=== PATIENT | male | born 1990 | race Caucasian/White ===

== ENCOUNTER 2017-11-08 21:35 | Emergency (ER) | payer OTHER ==
[~2017-11-08] VITALS: Ht 182.9 cm; Wt 68.9 kg
[2017-11-08] MEDS ORDERED: LIDOCAINE20 MG/1 M5 PO (23:26)
[2017-11-08] MEDS ORDERED: NAPROSYN500 MG PO (23:26)
[2017-11-08] MEDS ORDERED: CLINDAMYCIN HC300 MG PO (23:26)
[2017-11-08] MEDS ORDERED: ANUSOL HC,ANUCO25 MG PR (23:26)
[2017-11-09 00:28] VITALS: BP 127/72
== END 2017-11-09 00:29 | disposition home or self-care (01) ==
LOC: EME 21:35
DX: G89.29 Other chronic pain (principal); K08.89 Other specified disorders of teeth and supporting structures; K60.2 Anal fissure, unspecified; K92.1 Melena; K64.9 Unspecified hemorrhoids; Z88.0 Allergy status to penicillin; F17.200 Nicotine dependence, unspecified, uncomplicated
CPT/HCPCS: 99281; 99284

== ENCOUNTER 2017-11-30 19:53 | Emergency (ER) | payer OTHER ==
[~2017-11-30] VITALS: Ht 182.9 cm; Wt 66.7 kg
[~2017-11-30 19:53] MED LIST: ANUSOL HC,ANUCO25 MG PR; CLINDAMYCIN HC300 MG PO; LIDOCAINE20 MG/1 M5 PO; NAPROSYN500 MG PO
[2017-11-30 19:58] VITALS: BP 113/69
== END 2017-11-30 20:23 | disposition left against medical advice (07) ==
LOC: EME 19:53
DX: S99.911A Unspecified injury of right ankle, initial encounter (principal); Z53.21 Procedure and treatment not carried out due to patient leaving prior to being seen by health care provider